=== PATIENT | male | born 1995 | race Caucasian/White ===

== ENCOUNTER 2020-05-01 08:23 | Day surgery (SDC) | payer BC ==
[2020-05-01] MEDS ORDERED: Ringers Lactate 1,000 ML IV ONE (08:52)
[2020-05-01] MEDS ORDERED: dexAMETHasone 10 MG/ML VIAL ONE (10:17)
[2020-05-01] MEDS ORDERED: propofoL 200 MG/20 ML VIAL IV ONE ×2 (10:17→11:42)
[2020-05-01] MEDS ORDERED: FENTANYL CITR 100 MCG/2 ML ONE (10:17)
[2020-05-01] MEDS ORDERED: MIDAZOLAM HCL 2 MG/2 ML INJ ONE (10:17)
[2020-05-01] MEDS ORDERED: LIDOCAINE 1% MPF 2 ML AMPULE ONE (10:17)
[2020-05-01] MEDS: CEFAZOLIN/SWI 2gm 2 GM/20 ML SYR ONE ×2 (10:40→11:20)
[2020-05-01] MEDS: BUPIVACA 0.25%/EPI 0.0005% MDV 50 ML VIAL ONE ×2 (11:00→11:39)
[2020-05-01] MEDS ORDERED: METHYLENE BLUE 0.5% 10 ML AMP ONE (11:15)
[2020-05-01] MEDS ORDERED: ONDANSETRON 4 MG/2 ML VIAL ONE (11:37)
[2020-05-01] MEDS ORDERED: KETOROLAC 30 MG/ML INJ ONE (11:37)
[2020-05-01] MEDS ORDERED: MORPHINE 10 MG/ML VIAL ONE (11:51)
--- NOTE | 2020-05-01 11:59 | P.OP ---
Preoperative diagnosis: Pilonidal Cyst with Abscess Postoperative diagnosis: Pilonidal Cyst with Abscess Primary procedure: Wide Local Excision of Pilonidal Cyst with Sinus Anesthesia: GETA + Local Estimated blood loss: <20cc Specimen: Cultures, Debridement Tissue Findings: 8cm x 4cm down to fascia Complications: None Transferred to: Recovery Room Condition: Good
[2020-05-01] MEDS ORDERED: SODIUM HYPOCHLORITE 0.25% 473 ML ONE (12:09)
--- NOTE | 2020-05-01 12:55 | OP ---
Date of Procedure: 05/01/2020 Surgeon: Isaac Hightower MD, Preoperative Diagnosis: Pilonidal cyst with abscess. Postoperative Diagnosis: Pilonidal cyst with abscess. Procedure Performed: Wide local excision of pilonidal cyst with sinus and abscess. Anesthesia: General endotracheal plus local with 0.25% Marcaine. Estimated Blood Loss: Less than 20 mL. Specimen: Cultures both aerobic and anaerobic speciation, debridement tissue. Findings: 8 cm x 4 cm down to the fascia, but not involving the fascia, pilonidal cyst. Large bundl es of hair removed with specimen. Complications: None. Disposition: The patient transferred to recovery room in good condition. Procedure In Detail: After informed consent was obtained, the patient was brought to the operating r oom, prepped and draped in the usual sterile fashion. After adequate anesthesia achieved, I injected a punctate small hole distal to the pilonidal cyst at the superior tommie cleft. There was 2 small p unctate sinus tracts which were injected with methylene blue and noted to be a communication with the pilonidal cyst at the superior tommie cleft approximately 8 cm away. After this was demarcated, I th en anesthetized the skin circumferentially around with additional 0.25% Marcaine with epinephrine and dissected down through subcutaneous tissues using a 15 blade to take an ellipse of skin approximatel y 8 cm x 4 cm. At this point, electrocautery was used to dissect down through subcutaneous tissues, an abscess was encountered. This was cultured, both aerobic and anaerobic speciation. I then debrid ed the remainder of the tissue taking off the fascia, but not involving the fascia using electrocaute ry. This specimen was sent off for pathologic examination. The wound was then irrigated copiously a nd electrocautery was used to achieve hemostasis. The pilonidal sinus was removed after being probed as well, which was found to be inclusive of this methylene blue tract. This was removed on block as well, using an electrocautery. There was no communication with the anal or distal structures at thi s point. The area was inspected one last time. Good hemostasis was achieved at this point. The wou nd was then packed with Dakin's solution and a sterile dressing was placed over top. The patient ciro erated the procedure well without evidence of complication and transferred to PACU in good condition. All counts were correct at the end of the case. TK/MODL Voice ID: [id number] Report ID: [id number]
[2020-05-01 13:05] VITALS: TEMP 97.5; O2SAT 96
[2020-05-01 13:29] VITALS: BP 118/96
== END 2020-05-01 13:20 | disposition home or self-care (01) ==
LOC: OR 08:23
PROVIDERS: ATTEND Surgery
PROC: 0JB90ZZ Excision of Buttock Subcutaneous Tissue and Fascia, Open Approach (ICD-10-PCS; principal; 2020-05-01 10:30)
DX: L05.01 Pilonidal cyst with abscess (principal); Z20.822 Contact with and (suspected) exposure to COVID-19
CPT/HCPCS: 87070; 87205 ×2; 88304; 87075; 11770; U0002; J2704 ×2; J2250; J3010; J1100; J2001; J0690; J7120; J2405